=== PATIENT | female | born 1990 | race Caucasian/White ===

== ENCOUNTER 2025-02-24 08:46 | Emergency (ER) | payer MEDICAID ==
[~2025-02-24] VITALS: Ht 154.9 cm; Wt 66.0 kg
[2025-02-24 08:49] VITALS: O2SAT 99
[2025-02-24 08:51] VITALS: BP 101/69; PULSE 81; RESP 18; TEMP 36.7; O2SAT 100
[2025-02-24 09:41] LABS: CLARITY URINE CLOUDY (CLEAR); COLOR URINE DARK YELLOW (YELLOW); GLUCOSE URINE NEGATIVE (NEGATIVE); KETONES URINE TRACE (NEGATIVE); LEUKOCYTE ESTERASE URINE 2+ (NEGATIVE); NITRITE URINE NEGATIVE (NEGATIVE); OCCULT BLOOD URINE NEGATIVE (NEGATIVE); PH URINE 5.5 (4.5-8.0); PROTEIN URINE TRACE (NEGATIVE); SPECIFIC GRAVITY URINE 1.029 (1.005-1.030); UROBILINOGEN URINE 1.0 E.U./dL (0.2-1.0)
[2025-02-24 10:02] LABS: MUCUS URINE 3+ /lpf (< = 2+); SQUAMOUS EPITHELIAL CELL URINE 2+ /lpf (RARE/1+)
[2025-02-24 10:09] LABS: BACTERIA URINE 2+; TRICHOMONAS URINE FEW
[2025-02-24] MEDS ORDERED: METR-167 MT (10:21)
[2025-02-24] MEDS ORDERED: DOXY100C5 MT (10:21)
[2025-02-24] MEDS: CEFTRIAXONE SODIUM 500MG VIAL IM ONE (10:34)
[2025-02-24] MEDS: LIDOCAINE HCL 1% 20ML VIAL INFIL ONE (10:34)
[2025-02-26 04:07] LABS: CHLAMYDIA TRACHOMATIS NAA Negative (Negative); NEISSERIA GONORRHOEAE NAA Negative (Negative)
== END 2025-02-24 10:40 | disposition home or self-care (01) ==
LOC: ER 08:46
DX: A59.9 Trichomoniasis, unspecified (principal); Z98.890 Other specified postprocedural states
CPT/HCPCS: 99283; 87491; 87591; 81003; 81025; 87086; 96372; J0696; J2003

== ENCOUNTER 2025-03-15 12:45 | Emergency (ER) | payer MEDICAID ==
[~2025-03-15] VITALS: Ht 162.6 cm; Wt 64.0 kg
[~2025-03-15 12:45] MED LIST: DOXY100C5 MT; METR-167 MT
[2025-03-15 13:42] VITALS: TEMP 36.6; O2SAT 97
[2025-03-15 16:55] LABS: CLARITY URINE CLEAR (CLEAR); COLOR URINE DARK YELLOW (YELLOW); GLUCOSE URINE NEGATIVE (NEGATIVE); KETONES URINE TRACE (NEGATIVE); LEUKOCYTE ESTERASE URINE NEGATIVE (NEGATIVE); NITRITE URINE NEGATIVE (NEGATIVE); OCCULT BLOOD URINE 2+ (NEGATIVE); PH URINE 5.5 (4.5-8.0); PROTEIN URINE NEGATIVE (NEGATIVE); SPECIFIC GRAVITY URINE 1.032 (1.005-1.030); UROBILINOGEN URINE 1.0 E.U./dL (0.2-1.0)
[2025-03-15 17:15] LABS: BACTERIA URINE TRACE; SQUAMOUS EPITHELIAL CELL URINE 1+ /lpf (RARE/1+)
[2025-03-15 18:00] LABS: HCG SCREEN NEGATIVE
[2025-03-15 18:15] VITALS: BP 114/74; PULSE 66; RESP 16; O2SAT 100
[2025-03-17 09:11] LABS: HSV TYPE 2 SPECIFIC AB IGG Reactive (Non Reactive)
[2025-03-18 06:07] LABS: CHLAMYDIA TRACHOMATIS NAA Negative (Negative); NEISSERIA GONORRHOEAE NAA Negative (Negative)
== END 2025-03-15 18:22 | disposition home or self-care (01) ==
LOC: ER 12:50
DX: Z11.3 Encounter for screening for infections with a predominantly sexual mode of transmission (principal); Z79.899 Other long term (current) drug therapy; Z98.890 Other specified postprocedural states; Z88.2 Allergy status to sulfonamides
CPT/HCPCS: 36415; 81003; 81025; 84703; 86592; 86593; 86695; 86696; 87210; 87491; 87591; 99283